=== PATIENT | female | born 1960 | race Caucasian/White ===

== ENCOUNTER 2022-04-08 21:03 | Emergency (ER) | payer OTHER, BC ==
[~2022-04-08] VITALS: Ht 162.6 cm; Wt 82.6 kg
[2022-04-08] MEDS ORDERED: ALEN70TA87 PO (21:17)
[2022-04-08 21:31] LABS: BASO # 0.1 10^3/uL (0.0-0.2); BASO % 0.7 % (0.0-1.0); EOS # 0.3 10^3/uL (0.0-0.5); EOS % 3.4 % (0.0-3.0); HEMATOCRIT 39.6 % (36.0-47.0); HEMOGLOBIN 13.1 g/dl (12.0-15.5); LYMPH # 4.3 10^3/uL (1.5-5.0); MEAN CORPUSCULAR HGB CONC 33.1 g/dl (32.0-36.5); MEAN CORPUSCULAR VOLUME 93.8 fl (80.0-96.0); MONO # 0.6 10^3/uL (0.0-0.8); MONO % 6.2 % (2.0-8.0); NEUTROPHILS # 4.5 10^3/uL (1.5-8.5); NEUTROPHILS % 45.5 % (36.0-66.0); PLATELET COUNT, AUTOMATED 255 10^3/uL (150-450); RED BLOOD COUNT 4.22 10^6/uL (4.00-5.40); WHITE BLOOD COUNT 9.8 10^3/uL (4.0-10.0)
[2022-04-08 21:55] LABS: CK-MB VALUE MASS < 1.0 NG/ML (<3.6); CPK CREATINE PHOSPHOKINASE 74 U/L (26-192); MB/CK RELATIVE INDEX 1.35 (< OR =4)
[2022-04-08 21:56] LABS: ALBUMIN 3.9 GM/DL (3.2-5.2); ALT/SGPT 24 U/L (12-78); BILIRUBIN,DIRECT < 0.1 MG/DL (0.0-0.2); BILIRUBIN,TOTAL 0.2 MG/DL (0.2-1.0); BLOOD UREA NITROGEN 22 MG/DL (7-18); CALCIUM LEVEL 9.3 MG/DL (8.5-10.1); CARBON DIOXIDE LEVEL 25 MEQ/L (21-32); CHLORIDE LEVEL 109 MEQ/L (98-107); CREATININE FOR GFR 1.13 MG/DL (0.55-1.30); GLOMERULAR FILTRATION RATE 52.5 (>51); GLUCOSE, FASTING 85 MG/DL (70-100); NT-PRO BNP 115 PG/ML (<125); POTASSIUM SERUM 3.7 MEQ/L (3.5-5.1); SODIUM LEVEL 142 MEQ/L (136-145); TOTAL PROTEIN 7.1 GM/DL (6.4-8.2)
[2022-04-08] MEDS ORDERED: ISOVUE-370 76% 100ML VIAL As Ordered ONE (22:44)
[2022-04-08 23:44] LABS: CK-MB VALUE MASS < 1.0 NG/ML (<3.6); CPK CREATINE PHOSPHOKINASE 70 U/L (26-192); MB/CK RELATIVE INDEX 1.43 (< OR =4)
[2022-04-09] VITALS: BP 144/69
== END 2022-04-09 00:14 | disposition home or self-care (01) ==
LOC: EDBD 21:03 → M ED 21:03
DX: R00.2 Palpitations (principal); R07.89 Other chest pain; R06.02 Shortness of breath; F43.10 Post-traumatic stress disorder, unspecified; M81.0 Age-related osteoporosis without current pathological fracture; Z88.8 Allergy status to other drugs, medicaments and biological substances
CPT/HCPCS: 36415; 71045; 71275; 80048; 80076; 82550; 82553; 83880; 84484; 85025; 93005; 93041; 94760; 99285; Q9967

== ENCOUNTER 2022-06-18 13:20 | Observation (INO) | payer BC, OTHER ==
[~2022-06-18] VITALS: Ht 162.6 cm; Wt 84.1 kg
[~2022-06-18 13:20] MED LIST: ALEN70TA87 PO
[2022-06-18] MEDS ORDERED: NS 500 ML IV ONE (14:10)
[2022-06-18] MEDS ORDERED: ASMA1AER3 INH ×2 (14:35→17:45)
[2022-06-18] MEDS ORDERED: FLEC100T27 PO (14:35)
[2022-06-18] MEDS ORDERED: PROAAER10 INH (14:35)
[2022-06-18] MEDS ORDERED: METO37.5 PO (14:35)
[2022-06-18 14:41] LABS: BASO % 0.5 % (0.0-1.0); EOS # 0.1 10^3/uL (0.0-0.5); EOS % 1.4 % (0.0-3.0); HEMATOCRIT 38.4 % (36.0-47.0); HEMOGLOBIN 12.8 g/dl (12.0-15.5); LYMPH # 2.6 10^3/uL (1.5-5.0); LYMPH % 34.8 % (24.0-44.0); MEAN CORPUSCULAR HEMOGLOBIN 31.4 pg (27.0-33.0); MEAN CORPUSCULAR HGB CONC 33.3 g/dl (32.0-36.5); MEAN CORPUSCULAR VOLUME 94.3 fl (80.0-96.0); MONO # 0.5 10^3/uL (0.0-0.8); MONO % 6.8 % (2.0-8.0); NEUTROPHILS # 4.1 10^3/uL (1.5-8.5); NEUTROPHILS % 56.1 % (36.0-66.0); PLATELET COUNT, AUTOMATED 276 10^3/uL (150-450); RED BLOOD COUNT 4.07 10^6/uL (4.00-5.40); WHITE BLOOD COUNT 7.4 10^3/uL (4.0-10.0)
[2022-06-18 14:57] LABS: INR 0.91; PROTHROMBIN TIME 12.6 SECONDS (12.7-14.5)
[2022-06-18 14:58] LABS: PARTIAL THROMBOPLASTIN TIME 24.9 SECONDS (25.9-37.0)
[2022-06-18 15:00] LABS: D-DIMER QUANT 681.27 ng/ml (<500)
[2022-06-18 15:21] LABS: CK-MB VALUE MASS < 1.0 NG/ML (<3.6); CPK CREATINE PHOSPHOKINASE 55 U/L (26-192); MB/CK RELATIVE INDEX 1.82 (< OR =4)
[2022-06-18 15:27] LABS: ALBUMIN 3.7 GM/DL (3.2-5.2); ALT/SGPT 23 U/L (12-78); BILIRUBIN,DIRECT < 0.1 MG/DL (0.0-0.2); BILIRUBIN,TOTAL 0.3 MG/DL (0.2-1.0); BLOOD UREA NITROGEN 13 MG/DL (7-18); CARBON DIOXIDE LEVEL 23 MEQ/L (21-32); CHLORIDE LEVEL 110 MEQ/L (98-107); CREATININE FOR GFR 1.05 MG/DL (0.55-1.30); FREE T4 1.04 NG/DL (0.76-1.46); GLOMERULAR FILTRATION RATE 57.1 (>51); GLUCOSE, FASTING 82 MG/DL (70-100); LIPASE 164 U/L (73-393); MAGNESIUM LEVEL 1.9 MG/DL (1.8-2.4); PHOSPHORUS LEVEL 3.5 MG/DL (2.5-4.9); SODIUM LEVEL 139 MEQ/L (136-145); TOTAL PROTEIN 6.5 GM/DL (6.4-8.2)
[2022-06-18] MEDS ORDERED: ISOVUE-370 76% 100ML VIAL As Ordered ONE (15:37)
[2022-06-18 16:33] LABS: CK-MB VALUE MASS < 1.0 NG/ML (<3.6); CPK CREATINE PHOSPHOKINASE 53 U/L (26-192); MB/CK RELATIVE INDEX 1.89 (< OR =4)
[2022-06-18 16:55] VITALS: O2SAT 97
[2022-06-18] MEDS ORDERED: METO25TA4 PO (17:45)
[2022-06-18] MEDS ORDERED: PROBCAP14 PO (17:46)
[2022-06-18] MEDS ORDERED: HOME MED LIST COMPLETE! XX SCH (17:50)
[2022-06-18 18:31] LABS: RSV AMPLIFICATION NEGATIVE (NEGATIVE)
[2022-06-18] MEDS ORDERED: SODIUM CHLORIDE 0.9% 1000ML IV STA (18:35)
[2022-06-18] MEDS ORDERED: ALBUTEROL 90 MCG/ACT 8GM HFA INHALER INH PRN (18:40)
[2022-06-18 20:30] VITALS: BP_SYST 135; BP_DIAS 73; BP_DIAS 74
[2022-06-18] MEDS ORDERED: ENOXAPARIN 40MG/0.4ML SYRINGE (J1650 PER 10MG) SC SCH (21:00)
[2022-06-18] MEDS: NS 1,000 ML IV SCH (21:08)
[2022-06-18] MEDS ORDERED: ACETAMINOPHEN TAB 650MG DOSE (2X325MG) PO PRN (23:20)
[2022-06-18] MEDS: FLECAINIDE 50MG TABLET PO SCH (23:24)
[2022-06-18 23:41] LABS: MAGNESIUM LEVEL 1.9 MG/DL (1.8-2.4)
[2022-06-19] VITALS (8 sets, daily range): BP systolic 96–122; BP diastolic 48–80
[2022-06-19] MEDS: NS 1,000 ML IV SCH (04:05)
[2022-06-19] MEDS ORDERED: NITROGLYCERIN 0.4 MG SUBL TABLET SL PRN (06:00)
[2022-06-19] MEDS ORDERED: PILL CUTTER 1 EACH XX PRN (08:00)
[2022-06-19] MEDS: FLECAINIDE 50MG TABLET PO SCH (08:18)
[2022-06-19] MEDS: METOPROLOL TART 12.5 MG PER 1/2 TAB PO SCH ×2 (08:18→08:32)
[2022-06-19 08:45] LABS: HEMATOCRIT 36.7 % (36.0-47.0); HEMOGLOBIN 11.9 g/dl (12.0-15.5); MEAN CORPUSCULAR HEMOGLOBIN 31.4 pg (27.0-33.0); MEAN CORPUSCULAR HGB CONC 32.4 g/dl (32.0-36.5); MEAN CORPUSCULAR VOLUME 96.8 fl (80.0-96.0); PLATELET COUNT, AUTOMATED 259 10^3/uL (150-450); RED BLOOD COUNT 3.79 10^6/uL (4.00-5.40); WHITE BLOOD COUNT 6.5 10^3/uL (4.0-10.0)
[2022-06-19 09:10] LABS: CALCIUM LEVEL 8.8 MG/DL (8.5-10.1); CREATININE FOR GFR 1.1 MG/DL (0.55-1.30); GLOMERULAR FILTRATION RATE 54.1 (>51); MAGNESIUM LEVEL 2.1 MG/DL (1.8-2.4); POTASSIUM SERUM 4.4 MEQ/L (3.5-5.1)
[2022-06-19] MEDS: LEVALBUTEROL 1.25 MG/0.5 ML CONCENTRATE NEB INH SCH ×2 (11:21→15:34)
[2022-06-19] MEDS ORDERED: FLEC25TA PO (11:30)
[2022-06-20 21:07] LABS: IgG P18 AB Absent (.); IgG P23 AB Absent (.); IgG P28 AB Present (.); IgG P30 AB Absent (.); IgG P39 AB Absent (.); IgG P41 AB Absent (.); IgG P45 AB Absent (.); IgG P66 AB Absent (.); IgG P93 AB Absent (.); IgM P23 AB Absent (.); IgM P39 AB Absent (.); IgM P41 AB Absent (.); LYME IgG WB INTERPRETATION Negative (.); LYME IgM WB INTERPRETATION Negative (.)
== END 2022-06-19 18:15 | disposition home or self-care (01) ==
LOC: M ED 13:20 → EDBD 13:20 → M ED INP 13:21 → M PCU 20:30
PROVIDERS: ADMIT Internal Medicine; ATTEND Internal Medicine
DX: R55 Syncope and collapse (principal); I95.9 Hypotension, unspecified; I49.3 Ventricular premature depolarization; R06.02 Shortness of breath; R05.8 Other specified cough; R06.01 Orthopnea; R00.2 Palpitations; Z98.61 Coronary angioplasty status; J45.909 Unspecified asthma, uncomplicated; Z79.899 Other long term (current) drug therapy; Z79.51 Long term (current) use of inhaled steroids; Z88.8 Allergy status to other drugs, medicaments and biological substances; Z87.891 Personal history of nicotine dependence; Z82.49 Family history of ischemic heart disease and other diseases of the circulatory system
CPT/HCPCS: 36415; 70450; 70551; 71045; 71275; 80048; 80076; 82550; 82553; 83605; 83690; 83735; 84100; 84439; 84443; 84484; 85025; 85027; 85379; 85610; 85730; 86617; 87631; 93005; 93041; 93306; 94640; 94664; 94760; 96360; 96361; 96372; 97161; 97530; 99285; G0378; J1650; Q9967